=== PATIENT | female | born 1960 | race Caucasian/White ===

== ENCOUNTER → 2022-07-15 | Outpatient (CLI) | payer BC ==
[~2022-07-15] MED LIST: CELEBREX PO; GABAPENTIN300 MG PO; NORCO 7.5-3251 EACH PO
== END ==
LOC: US 09:11
PROVIDERS: ATTEND Family Medicine
DX: K11.8 Other diseases of salivary glands (principal)
CPT/HCPCS: 10005; 76942; 88112; 88172; 88300; 88305